=== PATIENT | female | born 1990 | race Caucasian/White ===

== ENCOUNTER → 2024-08-21 11:24 | Outpatient (REF) | payer OTHER, SELFPAY ==
[2024-08-23 11:55] LABS: Quantiferon Mitogen minus NIL 9.97 IU/mL; Quantiferon NIL 0.03 IU/mL; Quantiferon Plus TB1 minus NIL 0.01 IU/mL (<=0.34); Quantiferon TB Gold Plus Negative (Negative)
== END ==
LOC: OHS 11:24
PROVIDERS: ATTENDING PHYSICIAN Nurse Practitioner Family
DX: Z23 Encounter for immunization (principal)
CPT/HCPCS: 36415; 86480; 86787

== ENCOUNTER 2024-08-29 09:04 | Emergency (ER) | payer SELFPAY ==
[2024-08-29] VITALS (11 sets, daily range): BP systolic 108–141; BP diastolic 67–90; PULSE 104–127; O2SAT 99; BMI 25.1
--- NOTE | 2024-08-29 09:56 | EDRN ---
this RN entered the pts room and the pts room lights were off and her forearm was over her eyes, this RN asked the pt if she is having sensitivity to light and the pt stated, 'I guess i don't know', this RN asked if the lights hurt her eyes and the
pt stated, 'I don't know', this RN placed the pt on Sp02 monitor and BP cuff, the pt did not want to get into a gown, the pt stated that her primary complaint was dizziness and nausea, the pt denies chest pain and denies SOB, no s/s of distress, LAC
#[address] from EMS, labs drawn and sent, awaiting for POC from the provider, the pt is resting in stretcher in the lowest position, side rails up x2, call guzman within reach, HOB elevated, VS WNL, will continue to monitor the pt closely
--- NOTE | 2024-08-29 10:12 | ED.GENMED ---
History of Present Illness
<Ariana Tyson MD, Resident - Last Filed: 08/29/24 13:31>
General
Chief Complaint: Dizziness
Source: patient
Exam Limitations: none
Time Seen by Provider: 08/29/24 09:27
Nursing documentation reviewed up to this point in time: agreed with
History of Present Illness
History of Present Illness:
34-year-old female with PMHx significant for PCOS, nasal polyps, anxiety, uterine septoplasty, appendectomy, cholecystectomy presents to the hospital for evaluation of acute onset dizziness x 4 days. Patient started having dizziness when she was
playing with her kids on Sunday morning in her backyard, and felt a wave of lightheadedness that was intermittent. Her dizziness gradually became worse and by Sunday she had continual dizziness associated with nausea and emesis. Her emesis does
not abort her dizziness. She denies a sensation of things in the room spinning around her, but it is a sensation of her floating in the room, and passing out. Opening her eyes or moving her eyeballs or sitting from lying down or standing from
sitting exacerbates her dizziness, nausea. Beginning yesterday she started to have mild headaches, that are continuous and generalized, dull and aching, 3/10 in intensity, nonradiating and totally tolerable. She denies having any chest pain,
palpitations, blurring of vision, focal weakness, tingling, paresthesias, fevers, chills, neck stiffness or neck pain.
She denies having similar episodes in the past, or a diagnosis of migraine in the past. She is on certolizumab for anxiety.
She also denies having any sick contacts or recent travel history.
She went to urgent care on Sunday for similar complaints, and was diagnosed with acute right ear infection and urinary tract infection, was prescribed doxycycline and Bactrim. Patient has been taking only doxycycline and took 4 doses so far.
Over the last 1 week she denies having symptoms of ear pain, earache, ear discharge, increased frequency hesitancy or dysuria.
If applicable-neuro sx onset
Onset of symptoms known: No
Time pt last seen normal is known: No
Past History
<Ariana Tyson MD, Resident - Last Filed: 08/29/24 13:31>
Past History
ED Past Medical History: Psychiatric and Other
ED Past Surgical History: Appendectomy, Cholecystectomy, and Gynecological
Social History
Tobacco: Non-smoker
Alcohol: None
Drug: None
Personal: Single
Employment: Employed
Family History
Family History: Other
Review of Systems
<Ariana Tyson MD, Resident - Last Filed: 08/29/24 13:31>
Review of Systems
Allergies reviewed?: Yes
Constitutional: Reports fatigue; Denies fever, weight loss, night sweats or chills
EENT: Reports no symptoms
Respiratory: Reports no symptoms
Cardiac: Reports no symptoms
ABD/GI: Reports nausea and vomiting
: Reports no symptoms
Musculoskeletal: Reports no symptoms
Skin: Reports no symptoms
Neurological: Reports dizzy and headache
Endocrine: Reports no symptoms
Hematologic/Lymphatic: Reports no symptoms
Psychiatric: Reports no symptoms
Phy Exam
<Ariana Tyson MD, Resident - Last Filed: 08/29/24 13:31>
General Physical Exam
General Presentation: no apparent distress
General Skin: warm
General Habitus: normal
General Mental: alert
General Hydration: dry mucous membranes and poor skin turgor
ENT Exam
ENT Exam: TM's normal and pharynx normal
Additional ENT: Light reflex present, no mastoid tenderness b/l, auditory canals clear
Eye Exam
Eye Exam: PERRL, EOMI and other (torsional nystagmus in both eyes, fast component to center when looking to the right side)
Cardiovascular Exam
Cardiovascular Exam: regular rate/rhythm, no edema, no gallop, no murmur and normal peripheral pulses
Heart Sounds: normal
Pulmonary Exam
Pulmonary Exam: lungs clear, no respiratory distress, no rales, no crackles and no rhonchi
Gastrointestinal Exam
Gastrointestinal Exam: normal bowel sounds, non tender, soft, no pulsatile mass and non distended
Musculoskeletal Exam
Musculoskeletal Exam: full ROM, no edema and other (no neck pain. )
Skin Exam
Skin Exam: normal color
Course
<Ariana Tyson MD, Resident - Last Filed: 08/29/24 13:31>
Orders/Labs/Results
Orders:
Orders
08/29/24 09:51
CMP [Comprehensive Metabolic Panel] Urgent
Complete Blood Count/With Diff Urgent
Free T4 Urgent
Magnesium Urgent
Comment: ADD ON
TSH Reflex To Free T4 Urgent
Comment: ADD ON
08/29/24 10:02
Add On- LAB Urgent
Tests Added?: magnesium, TSH to reflex Free T4
08/29/24 10:12
0.9% Sodium Chloride 1000 ml [Nss] 1,500 ml IV BOLUS
08/29/24 10:15
Physical Therapy Consult [Pt Eval And Treat] Urgent
Treatment: Vertigo, active symptoms
Activity Level: Ambulate
08/29/24 11:19
CT Head W/o Iv Contrast Urgent
Comment:
Reason For Exam: dizziness
08/29/24 11:24
Lorazepam [Ativan] 1 mg IV NOW STA
Ondansetron Injectable [Zofran] 4 mg IV NOW STA
Abnormal Lab Results
08/29/24
09:51
WBC 13.8 H 10^3/uL
(4.8-10.8)
Abs Immat Gran (auto) 0.1 H 10^3/uL
(0-0.05)
Absolute Neuts (auto) 9.8 H 10^3/uL
(1.4-6.5)
Immature Gran % 1.0 H %
(0-0.5)
Lymphocytes % 19.7 L %
(20.5-51.1)
Glucose 166 H mg/dl
(70-99)
TSH (Reflex) 0.33 L uIU/ml
(0.47-4.68)
08/29/24 09:51
08/29/24 09:51
Vital Signs
Initial and Last Documented VS:
Initial Vital Signs
Temp Pulse Resp BP Pulse Ox
98.4 F 120 16 120/83 98
08/29/24 09:06 08/29/24 09:06 08/29/24 09:06 08/29/24 09:06 08/29/24 09:06
Last Documented Vital Signs
Temp Pulse Resp BP Pulse Ox
98.5 F 86 20 109/67 100
08/29/24 09:53 08/29/24 13:55 08/29/24 13:55 08/29/24 14:01 08/29/24 13:55
<Rafa Castillo MD - Last Filed: 08/29/24 14:24>
Orders/Labs/Results
Orders:
Orders
08/29/24 09:51
CMP [Comprehensive Metabolic Panel] Urgent
Complete Blood Count/With Diff Urgent
Free T4 Urgent
Magnesium Urgent
Comment: ADD ON
TSH Reflex To Free T4 Urgent
Comment: ADD ON
08/29/24 10:02
Add On- LAB Urgent
Tests Added?: magnesium, TSH to reflex Free T4
08/29/24 10:12
0.9% Sodium Chloride 1000 ml [Nss] 1,500 ml IV BOLUS
08/29/24 10:15
Physical Therapy Consult [Pt Eval And Treat] Urgent
Treatment: Vertigo, active symptoms
Activity Level: Ambulate
08/29/24 11:19
CT Head W/o Iv Contrast Urgent
Comment:
Reason For Exam: dizziness
08/29/24 11:24
Lorazepam [Ativan] 1 mg IV NOW STA
Ondansetron Injectable [Zofran] 4 mg IV NOW STA
Abnormal Lab Results
08/29/24
09:51
WBC 13.8 H 10^3/uL
(4.8-10.8)
Abs Immat Gran (auto) 0.1 H 10^3/uL
(0-0.05)
Absolute Neuts (auto) 9.8 H 10^3/uL
(1.4-6.5)
Immature Gran % 1.0 H %
(0-0.5)
Lymphocytes % 19.7 L %
(20.5-51.1)
Glucose 166 H mg/dl
(70-99)
TSH (Reflex) 0.33 L uIU/ml
(0.47-4.68)
08/29/24 09:51
08/29/24 09:51
Vital Signs
Initial and Last Documented VS:
Initial Vital Signs
Temp Pulse Resp BP Pulse Ox
98.4 F 120 16 120/83 98
08/29/24 09:06 08/29/24 09:06 08/29/24 09:06 08/29/24 09:06 08/29/24 09:06
Last Documented Vital Signs
Temp Pulse Resp BP Pulse Ox
98.5 F 86 20 109/67 100
08/29/24 09:53 08/29/24 13:55 08/29/24 13:55 08/29/24 14:01 08/29/24 13:55
<Ariana Tyson MD, Resident - Last Filed: 08/29/24 13:31>
MDM/Problems Addressed
Differential Diagnosis Includes:
BPPV, vestibular neuritis, M�ni�re's disease, central vertigo.
MDM/Problems Addressed:
Physical therapy consulted for hints exam
Zofran given for nausea
<Ariana Tyson MD, Resident - Last Filed: 08/29/24 13:31>
*Radiology
Radiology exam reviewed: preliminary read by ED provider and radiology read reviewed
*EKG
Interpreted by ED Provider?: NA
*Critical Care Note
Total Time (30-74mins, 75-104mins- exclusive of procedures): Not Applicable
<Ariana Tyson MD, Resident - Last Filed: 08/29/24 13:31>
Update Note
Update Note:
Physical therapy conducted a HINTS examination - which showed bi-directional nystagmus.
BPPV less likely.
Current potential differentials include - vestibular neuritis vs central etiology.
CT head - negative.
ED Attending Note
<Ariana Tyson MD, Resident - Last Filed: 08/29/24 13:31>
-
Portions of this chart may have been created with voice recognition software.� Occasional wrong word or��sound alike� substitutions may have occurred due to the inherent limitations of voice recognition software.
<Rafa Castillo MD - Last Filed: 08/29/24 14:24>
ED Attending Note
Patient seen and examined by attending physician: Yes
ED Attending Note:
Patient presents to ED secondary to intermittent dizziness, associated with nausea and vomiting over the past 4 days. Patient states that her symptoms started when she was outside playing with her children. Since then, unless she lays flat with
her eyes closed, she has been experiencing dizziness/room spinning sensation. Denies fever or chills. Denies headache. Denies blurred vision. Denies loss of sensation or weakness. Denies difficulty with speech or swallowing. Denies previous
history of similar symptoms. Denies recent illness. Denies recent change in medications or diet. Denies recent travel. Denies smoking or drinking alcohol.
Physical Exam
General: mild distress, not acutely ill. afebrile
Head: nc/at. eomi. horizontal nystagmus noted.
Neck: supple. no meningeal signs. normal range of motion.
Heart: s1/s2 regular rate and rhythm, no murmur.
Lungs: no acute respiratory distress. clear bilaterally
Abdomen: normal bowel sounds. not tender.
Neuro: alert and oriented. no focal neurological deficits
Skin: no rash
Psychiatric: well kept. interactive and cooperative
Extremities: no edema. no calf tenderness.
Patient with an unremarkable workup in ED, including blood work and CT head. Patient also evaluated by physical therapy, and outpatient evaluation recommended.
Patient otherwise remains afebrile, hemodynamically stable, and neurologically intact. Patient and family feel comfortable going home at this time with already discussed plan. Patient will be given prescription for meclizine as well as prednisone,
to be used as needed as an outpatient.
Discharge Plan
Departure
Patient Disposition: Home (Routine Discharge)
Date of Disposition: 08/29/24
Time of Disposition: 13:04
Patient with high blood pressure during this ER visit?: Yes
Consults for patient: Physical Therapy
Discharge Problem:
Acute vestibular neuritis
Instructions: Vertigo (a Type of Dizziness) (DC), BLOOD PRESSURE
Prescriptions:
New
meclizine 25 mg tablet
25 mg PO BID 7 Days Qty: 14 0RF
prednisone 10 mg tablet
10 mg PO DIRECTED 12 Days Qty: 30 0RF
Rx Instructions:
4 tab X 3 days, then
3 tab X3 days, then
2 tab X 3 days, then
1 tab X 3 days.
No Action
multivitamin Tablet
1 tab PO DAILY
albuterol sulfate 90 mcg/actuation Hfa Aerosol Inhaler
1 inh INHALATION ONCE PRN (Reason: wheezing)
acetaminophen 325 mg Tablet
650 mg PO Q4HPRN PRN (Reason: mild pain) Qty: 0 0RF
fluoxetine 20 mg Tablet
20 mg PO DAILY
Wegovy 2.4 mg/0.75 mL Pen Injector
2.4 mg SC QWEEK
Cimzia 400 mg/2 mL (200 mg/mL x 2) Syringe Kit
400 mg SC Q2W
Referrals:
Sherie Hodges CRNP [Family Provider] -
Activity Restrictions/Additional Instructions:
Please follow-up with your primary care physician in 1 week.
Please discontinue antibiotics as you do not need them.
Please establish care with vestibular therapy-with their office number is [phone].
In case your symptoms worsen in the next 48 hours, please visit the emergency room.
Interventions
Interventions:
*Risk Screen - Suicide Last Done: 08/29/24 09:06
*General Assessment Last Done: 08/29/24 09:53
*Neglect/Abuse Screening Last Done: 08/29/24 09:06
ED- Fall Risk Assessment Last Done: 08/29/24 09:53
*ED COVID-19 Vaccine History Last Done: 08/29/24 09:53
*Nursing Disposition Last Done: 08/29/24 14:03
ED- Neurological Assessment Last Done: 08/29/24 09:53
ED- Cardiac Assessment Last Done: 08/29/24 09:53
ED Swallowing Screen Last Done: 08/29/24 09:53
Discharge Date and Time
Discharge Date/Time: 08/29/24 14:04
Print Language: [place] CITIZEN
[2024-08-29 10:18] LABS: % Basophils 0.7 % (0-2); % Eosinophils 4.2 % (0-6); % Lymphocytes 19.7 % (20.5-51.1); % Monocytes 3.3 % (1.7-9.3); % Neutrophils 71.1 % (42.2-75.2); Absolute Basophils 0.1 10^3/uL (0-0.2); Absolute Eosinophils 0.6 10^3/uL (0-0.7); Absolute Immature Granulocytes 0.1 10^3/uL (0-0.05); Absolute Lymphocytes 2.7 10^3/uL (1.2-3.4); Absolute Monocytes 0.5 10^3/uL (0.1-0.6); Absolute Neutrophils 9.8 10^3/uL (1.4-6.5); Hematocrit 40.1 % (37.0-47.0); Hemoglobin 14.2 g/dL (12.0-16.0); Mean Corp Hgb Conc. 35.4 g/dL (33.0-37.0); Mean Corpuscular Volume 84.8 fL (81.0-99.0); Mean Platelet Volume 10.2 fL (7.4-10.4); Nucleated Red Blood Cells % 0 %; Platelet Count 212 10^3/uL (130-400); Red Blood Cell Count 4.73 10^6/uL (4.20-5.40); Red Cell Dist. Width 12.1 % (11.5-14.5); White Blood Cell Count 13.8 10^3/uL (4.8-10.8)
[2024-08-29] MEDS: NSS 1500 IV (10:20)
[2024-08-29 10:26] LABS: ALT (SGPT) 18 U/L (0-35); AST (SGOT) 22 U/L (14-36); Albumin 4.5 g/dl (3.5-5.0); Alkaline Phosphatase 62 U/L (38-126); Blood Urea Nitrogen 17 mg/dl (7-17); Calcium 9.3 mg/dl (8.4-10.2); Carbon Dioxide 23 mmol/L (22-30); Chloride 105 mmol/L (98-107); Estimated Creatinine Clearance 81 ml/min; Glucose 166 mg/dl (70-99); Magnesium 1.8 mg/dl (1.6-2.3); Potassium 4.3 mmol/L (3.5-5.1); Sodium 139 mmol/L (135-145); Total Bilirubin 0.6 mg/dl (0.2-1.3); Total Protein 7.3 g/dl (6.3-8.2); eGFR > 60.00
--- NOTE | 2024-08-29 11:13 | EDRN ---
the pt is resting in stretcher in the lowest position, side rails up x2, call guzman within reach, HOB elevated, VS WNL, no s/s of distress, the pt has slight c/o dizziness and no c/o nausea, the pt denies needing anything at this time, will continue
to monitor the pt closely
[2024-08-29] MEDS: ZOFRAN 4 MG IV (11:31)
[2024-08-29] MEDS: ATIVAN 1 MG IV (11:31)
--- NOTE | 2024-08-29 11:40 | EDRN ---
this RN administered Ativan IV and Zofran per the providers orders, the pt requested something to help the dizziness and for her anxiety and for her nausea, this RN double checked the order with the provider, pt tolerated medication well, awaiting
for CT scan to call for the pt, will continue to monitor the pt closely
[2024-08-29 11:58] LABS: TSH Reflex To Free T4 0.33 uIU/ml (0.47-4.68)
== END 2024-08-29 14:04 | disposition home or self-care (01) ==
LOC: EMR 09:04
PROVIDERS: EMERGENCY PHYSICIAN Emergency Medicine; FAMILY PHYSICIAN Nurse Practitioner Family
DX: H93.3X9 Disorders of unspecified acoustic nerve (principal); R03.0 Elevated blood-pressure reading, without diagnosis of hypertension; E28.2 Polycystic ovarian syndrome; F41.9 Anxiety disorder, unspecified
CPT/HCPCS: 99284; 96374; 96375; 96361; 70450; 80053; 83735; 84439; 84443; 85025

== ENCOUNTER → 2024-12-23 11:32 | Outpatient (REF) | payer BC, SELFPAY | LOC: RAD 11:32 | PROVIDERS: ATTENDING PHYSICIAN Internal Medicine; FAMILY PHYSICIAN Nurse Practitioner Family | DX: M45.9 Ankylosing spondylitis of unspecified sites in spine (principal); M54.50 Low back pain, unspecified; M46.1 Sacroiliitis, not elsewhere classified | CPT/HCPCS: 72100; 72202 ==